=== PATIENT | female | born 1985 | race Caucasian/White ===

== ENCOUNTER 2023-10-09 00:10 | Emergency (ER) | payer OTHER, MEDICAID, SELFPAY ==
[2023-10-09 00:13] VITALS: BP 138/75; PULSE 69; RESP 16; TEMP 36.7; O2SAT 99; BMI 28.4
--- NOTE | 2023-10-09 00:34 | CT_ITS ---
INDICATION: Left flank pain COMPARISON: None. A radiation dose optimization technique was used for this scan. RADIATION DOSAGE (If Supplied By Facility): CTDIvol/DLP = ( 8.69 ) / ( 419.09 ) mGy/mGycm FINDINGS: Noncontrast serial CT axial images through the abdomen and pelvis with coronal and sagittal reformatted series PANCREAS: No peripancreatic fat stranding. BOWEL/MESENTERY: No dilated bowel loops. No significant free fluid. No free air. GALLBLADDER: No pericholecystic fat stranding. LIVER/STOMACH: No obvious abnormality. URINARY COLLECTING SYSTEM/ KIDNEYS: Multiple bilateral phleboliths in place. Bilateral pelvic phleboliths without evidence of obstructing ureteral calculus. No significant renal parenchymal abnormality. APPENDIX: Normal caliber gas containing appendix. LUNG BASES: Unremarkable. BONES: Unremarkable for age. CT/Abdomen/Pelvis without Cont IMPRESSION: No acute abdominal abnormality is identified. Nephrolithiasis and bilateral pelvic phleboliths. Although left distal ureter somewhat difficult to follow, there is no evidence of obstructing ureteral calculus. Electronically Signed: Tadeo Cabral MD at 1:48 EDT ,
[2023-10-09] MEDS: Ondansetron 4 MG/2 ML Vial IV (00:42)
[2023-10-09] MEDS: 0.9% Normal Saline (1000mL) 1,000 ML 999 ML IV (00:42)
[2023-10-09] MEDS: HYDROmorphone 1 MG/ML Syringe IV (00:42)
[2023-10-09 01:06] LABS: Mucous, Urine 0 SEEN /hpf (<or=2+)
[2023-10-09 01:17] LABS: Color, Urine Yellow (Yellow); Glucose, Dipstick Normal (Normal); Ketone-Dipstick Negative (Negative); Leukocyte Esterase-Dipstick Negative /ul (Negative); Nitrite-Dipstick Negative (Negative); Occult Blood-Urine Negative /ul (Negative); Protein-Dipstick Negative (Negative); Specific Gravity, Urine 1.015 (1.002-1.030); Urine Bilirubin Dipstick Negative (Negative); Urine Clarity Clear (Clear); Urine Urobilinogen Normal (Normal)
[2023-10-09 01:18] LABS: Absolute Lymphocyte Count 4.09 X10^3/uL (0.83-4.51); Absolute Neutrophil Count 4.3 X10^3/uL (2.0-7.7); Basophil# 0.06 X10^3/uL; Basophil% 0.6 % (0-1); Eosinophil# 0.31 X10^3/uL; Eosinophils% 3.2 % (0-5); Hematocrit 40.7 % (37-47); Hemoglobin 13.7 g/dL (12.0-15.0); Lymphocyte # 4.09 X10^3/ul (0.83-4.51); Lymphocyte % 41.9 % (19-41); Mean Corp Hgb Conc 33.7 g/dL (32-36); Mean Corpuscular Hgb 30.9 pg (27.0-32.0); Mean Corpuscular Volume 91.9 fL (81-99); Monocyte# 0.88 X10^3/uL; NRBC Flagged by Analyzer 0 % (0-5); Neutrophil # 4.34 X10^3/uL (2.7-7.7); Neutrophil % 44.5 % (47-70); Platelet Count 272 K/mm3 (150-450); RBC Distribution Width CV 12.8 % (11.6-14.6); RBC Distribution Width SD 43.3 fl (35.1-43.9); Red Blood Count 4.43 M/mm3 (4.2-5.4); White Blood Count 9.8 K/mm3 (4.4-11.0)
[2023-10-09 01:23] LABS: Anion Gap 5 (5-15); BUN 20 mg/dL (7-18); BUN/Creat Ratio 19.2 RATIO (10-20); Chloride 106 mmol/L (98-107); Creatinine, Serum 1.04 mg/dL (0.55-1.02); EST Glomerular Filtration Rate 62 mL/min (>60); Est Glom Filt Rate - Afr Amer 75 mL/min (>60); Estimated Creatinine Clearance 74.01 ml/min; Glucose 86 mg/dL (74-106); Potassium 3.5 mmol/L (3.5-5.1); Sodium Level 136 mmol/L (136-145)
[2023-10-09 01:25] LABS: Bacteria 1+ /hpf (None Seen); Red Blood Cells-Urine 0-5 SEEN /hpf (0-5); Squamous Epithelial Cells - UA 5-10 SEEN /hpf (5-10); White Blood Cells 0-5 SEEN /hpf (0-5)
--- NOTE | 2023-10-09 02:22 | EX.ED.DYSGE1 ---
HPI History of Present Illness Chief Complaint: Flank Pain Informant: patient Narrative Narrative: Patient is a 38-year-old female who reports a past medical history of medullary sponge kidney and recurrent kidney stones. She states she was sitting at home around 3 hours ago when she noticed some sharp left-sided flank pain. She states that there was no trauma or excessive activity recently. She denies any dysuria or hematuria. However as she has a history of stones she is concerned for this once again and therefore comes in for evaluation. Patient does deny any history of IV drug use or loss of bowel or bladder control PFSH PFSH Home Medications ?Medication ?Instructions ?Recorded ?Last Taken ?Type NK 10/09/23 Unknown History Allergy/AdvReac Type Severity Reaction Status Date / Time No Known Allergies Allergy Verified 10/09/23 00:48 Surgical History Hx of section History of lithotripsy Social History Smoking Status: Current every day smoker tobacco type: cigarettes ROS ROS ED Constitutional Constitutional ED: Denies chills or fever(s) ENT ENT ED: Denies sore throat Cardiovascular Cardiovascular: Denies chest pain Respiratory/Chest Respiratory/Chest: Denies cough or dyspnea Gastrointestinal Gastrointestinal: Denies abdominal pain, diarrhea, nausea or vomiting Genitourinary Genitourinary ED: Denies dysuria or hematuria Musculoskeletal Musculoskeletal: Reports back pain Integumentary Denies rash Neurologic Neurologic: Denies headache(s) Hematologic/Lymphatic Hematologic/Lymphatic: Denies easy bleeding or easy bruising EXAM Physical Exam Const Vital Signs: 10/09/23 00:13 Temperature 98.1 F Temperature Source Oral Pulse Rate 69 Respiratory Rate 16 Blood Pressure 138/75 H Blood Pressure Mean 96 Pulse Ox 99 Oxygen Delivery Method Room Air Positive well nourished and well developed General Appearance ED: well developed; Negative for pallor HEENT HEENT Narrative: Normocephalic atraumatic Eyes PERRL and EOMs intact bilaterally General Eye ED: Negative for scleral icterus Neck supple Neck Narrative: No nuchal rigidity or meningeal signs Resp normal respiratory effort and clear to auscultation bilaterally Resp Narrative: No nasal flaring retractions tachypnea or accessory muscle use Cardio regular rate and regular rhythm Rate: other Other Details: Heart is regular rate and rhythm without murmurs rubs or gallop Radial and carotid pulses are equal and symmetric GI non-distended and no masses GI Narrative: Abdomen is soft and nondistended with normal active bowel sounds. Patient has mild pain on palpation along the left mid lateral abdomen without voluntary guarding or rigidity. No organomegaly noted No fluid wave or pulsatile mass Auscultation: normoactive bowel sounds Palpation: soft Back/Spine Back/Spine Narrative: Positive left CVA pain noted No overlying abrasions or ecchymosis to suggest trauma No erythema or warmth to suggest infection Extremity normal to inspection Extremity Narrative: No asymmetric edema no pitting edema negative Homans' sign bilaterally Neuro oriented x3, CN's II-XII intact bilaterally and no sensory deficits noted Sensorium / Orientation: alert Motor Exam: strength 5/5 throughout Psych Psych Narrative: Patient has a flat affect Skin no rashes or lesions noted and no wounds General Skin Exam: Negative for jaundice or pallor MDM MDM MDM Narrative Medical decision making narrative: Patient presented to ER with stable vitals and reported left-sided flank pain that came on over the last few hours without any type of trauma or excessive activity. She also denies any loss of bowel or bladder control or IV drug use going against cauda equina or epidural abscess. Other differential diagnoses are kidney stone versus lumbosacral strain versus UTI versus pyelonephritis versus pneumonia. The patient is not coughing and her lungs are clear going against pneumonia as a cause of her back pain. Pain does not seem to worsen with position change going against lumbosacral strain. With reported history of medullary sponge kidney and previous kidney stone decision was made to check basic laboratory studies and CT scan without contrast. Labs revealed no sign of acute kidney injury and urine shows no sign of infection or blood going against UTI/pyelonephritis or kidney stone. CT scan also showed no obvious cause for her pain as there is no obvious kidney stone noted and the radiologist does not mention any changes to the morphology of the kidney to suggest medullary sponge kidney. On reevaluation the patient is resting comfortably and is overall workup is negative she does not have findings of UTI/pyelonephritis or urosepsis or signs of acute kidney injury I do not feel there is need for further workup and she is otherwise safe for discharge History & Record Review Discussion w/independent historian: Patient Lab Data Attestation: I reviewed the patient's lab results. Labs: Laboratory Results - last 24 hr 10/09/23 00:27 WBC 9.8 RBC 4.43 Hgb 13.7 Hct 40.7 MCV 91.9 MCH 30.9 MCHC 33.7 RDW Std Deviation 43.3 RDW Coeff of Carlos Eduardo 12.8 Plt Count 272 MPV 10.0 Immature Gran % (Auto) 0.800 Neut % (Auto) 44.5 L Lymph % (Auto) 41.9 H [place] % (Auto) 9.0 Eos % (Auto) 3.2 Baso % (Auto) 0.6 Absolute Neuts (auto) 4.3 Absolute Lymphs (auto) 4.09 Nucleated RBC % 0 Sodium 136 Potassium 3.5 Chloride 106 Carbon Dioxide 25.0 Anion Gap 5 BUN 20 H Creatinine 1.04 H Estim Creat Clear Calc 74.01 Est GFR (MDRD) Af Amer 75 Est GFR (MDRD) Non-Af 62 BUN/Creatinine Ratio 19.2 Glucose 86 Calcium 9.0 Urine Color Yellow Urine Clarity Clear Urine pH 7.0 Ur Specific [place] 1.015 Urine Protein Negative Urine Glucose (UA) Normal Urine Ketones Negative Urine Occult Blood Negative Urine Nitrite Negative Urine Bilirubin Negative Urine Urobilinogen Normal Ur Leukocyte Esterase Negative Urine RBC 0-5 SEEN Urine WBC 0-5 SEEN Ur Squamous Epith Cells 5-10 SEEN Urine Bacteria 1+ Urine Mucus 0 SEEN Radiography Diagnostic Testing: Clinical Impression(s) from Imaging Studies Abdomen/Pelvis CT 10/09/23 00:34 IMPRESSION: No acute abdominal abnormality is identified. Nephrolithiasis and bilateral pelvic phleboliths. Although left distal ureter somewhat difficult to follow, there is no evidence of obstructing ureteral calculus. Electronically Signed: Tadeo Cabral MD at 1:48 EDT , Discharge Plan Triage Chief Complaint: Flank Pain ED Provider: Javier Key Dx/Rx/DC Orders Clinical Impression: Acute left flank pain Instructions: ED Flank Pain, Uncertain Cause Prescriptions: No Action NK Primary Care Provider: Samuel Pérez Referrals: Samuel Pérez MD [Primary Care Provider] - Activity Restrictions/Additional Instructions: Please follow-up with your family doctor for repeat evaluation as there was no obvious cause of your flank pain such as kidney stone or infection. Return to the ER should you have any further concerns or worsening of symptoms Print Language: Romanian Disposition Disposition: Home, Self Care
[2023-10-09 02:27] VITALS: BP 127/86; PULSE 78; RESP 16; TEMP 36.6; O2SAT 96
== END 2023-10-09 02:29 | disposition home or self-care (01) ==
PROVIDERS: Emergency Provider Emergency Medicine; PCP Family Medicine; Visit Provider Emergency Medicine
DX: R10.9 Unspecified abdominal pain (principal); F17.210 Nicotine dependence, cigarettes, uncomplicated
CPT/HCPCS: 74176; 80048; 81001; 85025; 90471; 96361; 96374; 96375; 99283; J7030; A4216; J2405